=== PATIENT | male | born 1980 | race African-American/Black ===

== ENCOUNTER 2025-03-05 22:23 | Emergency (ER) | payer MEDICAID, OTHER ==
[~2025-03-05] VITALS: Ht 180.3 cm; Wt 76.8 kg
[~2025-03-05 22:23] MED LIST: ASPITAB34
[2025-03-05] MEDS ORDERED: HYDROmorphone HCL 2 MG/ML VL/or syr IM ONE (23:00)
[2025-03-05] MEDS ORDERED: ONDANSETRON HCL 4 MG/2 ML VIAL IM ONE (23:00)
[2025-03-05] MEDS: ONDANSETRON HCL 4 MG/2 ML VIAL IV ONE (23:03)
[2025-03-05] MEDS: HYDROmorphone HCL 2 MG/ML VL/or syr IV ONE (23:04)
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
[2025-03-06] MEDS: HYDROmorphone HCL 2 MG/ML VL/or syr ONE (01:33)
[2025-03-06] MEDS: ONDANSETRON HCL 4 MG/2 ML VIAL ONE (01:34)
[2025-03-06] MEDS: HYDROmorphone HCL 2 MG/ML VL/or syr IV ONE ×2 (01:46→02:51)
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
[2025-03-06 02:32] VITALS: TEMP 97.9
[2025-03-06 02:33] VITALS: PULSE 71; RESP 16; O2SAT 100
[2025-03-06 02:51] VITALS: BP 180/108; PULSE 71; RESP 16
== END 2025-03-06 00:32 | disposition short-term general hospital (02) ==
LOC: ER 22:23
DX: S02.40DB Maxillary fracture, left side, initial encounter for open fracture (principal); S02.40CB Maxillary fracture, right side, initial encounter for open fracture; S02.2XXB Fracture of nasal bones, initial encounter for open fracture; F17.210 Nicotine dependence, cigarettes, uncomplicated; F12.90 Cannabis use, unspecified, uncomplicated; Z79.899 Other long term (current) drug therapy; Y08.89XA Assault by other specified means, initial encounter; Y93.01 Activity, walking, marching and hiking; Y92.488 Other paved roadways as the place of occurrence of the external cause; Y99.8 Other external cause status
CPT/HCPCS: 70450; 70486; 72125; 96374; 96375; 96376; 99285; J1171; J2405